=== PATIENT | male | born 1995 | race Caucasian/White ===

== ENCOUNTER 2024-12-02 11:07 | Outpatient (CLI) | payer BC, SELFPAY ==
--- NOTE | 2024-12-02 11:17 | XRR_ITS ---
PROCEDURE INFORMATION: Exam: XR Left Shoulder Exam date and time: 12/02/2024 11:22 AM Age: 29 years old Clinical indication: Injury or trauma; Fall; Blunt trauma (contusions or hematomas); Injury date: 12/01/24; Injury details: Fell on left shoulder yesterday, pain in left shoulder and limited rom since; Additional info: Shoulder trauma TECHNIQUE: Imaging protocol: Radiologic exam of the left shoulder. Views: 2 or more views. COMPARISON: [place] [id number] 12/02/2024 11:22 AM FINDINGS: Bones/joints: Normal. Soft tissues: Normal. XR/XR shoulder LT min 2V* [id number] IMPRESSION: No acute findings.
--- NOTE | 2024-12-02 11:17 | XRR_ITS ---
PROCEDURE INFORMATION: Exam: XR Left Scapula Exam date and time: 12/02/2024 11:22 AM Age: 29 years old Clinical indication: Injury or trauma; Fall; Blunt trauma (contusions or hematomas); Right; Injury date: 12/01/24; Injury details: Fell on left shoulder yesterday, pain in left shoulder and limited rom since; Additional info: Trauma to shoulder blade, internal /external/ and scapular x view TECHNIQUE: Imaging protocol: Radiologic exam of the left scapula. Complete exam. COMPARISON: CR XR shoulder LT min 2V* [id number] 12/02/2024 11:22 AM FINDINGS: Bones/joints: Normal. Soft tissues: Normal. XR/[place] [id number] IMPRESSION: No acute findings.
== END 2024-12-02 11:08 | disposition home or self-care (01) ==
PROVIDERS: PCP Nurse Practitioner Family; Visit Provider Emergency Medicine
DX: G89.11 Acute pain due to trauma (principal); M25.512 Pain in left shoulder
CPT/HCPCS: 73010; 73030

== ENCOUNTER 2025-07-06 20:11 | Emergency (ER) | payer SELFPAY ==
[2025-07-06 20:14] VITALS: BP 118/76; PULSE 70; RESP 16; TEMP 36.8; O2SAT 100; BMI 20.5
--- NOTE | 2025-07-06 20:30 | ECG_ITS ---
[facility] Date: 2025-07-06 Pat Name: Lefty Nesbitt Department: Room: Gender: Male Bell [employer]er: : 1995 Requested By: Maureen Doss Order Number: [id number] Redd MD: Jovana Quintanilla M.D. Measurements Intervals [place] Rate: 66 P: 81 CO: 154 QRS: 103 QRSD: 102 T: 35 QT: 373 QTc: 394 Interpretive Statements SINUS RHYTHM RIGHT AXIS DEVIATION [QRS AXIS > 100] NONSPECIFIC T-WAVE ABNORMALITY No previous ECG available for comparison Electronically Signed On 07-07-2025 18:51:18 TRANSCRIBER by Jovana Quintanilla M.D. [email or web address]
--- NOTE | 2025-07-06 20:37 | W.ED.GENADLT ---
HPI - General Adult General: Chief complaint: General Medical Stated complaint: dizzy, no sleep, n/v Time Seen by Provider: 07/06/25 20:24 History of Present Illness: Patient is a 29-year-old male that presents to the ED with dizziness x 24 hours, nausea, vomiting. He states he cannot hold anything down. He is unsure what brought this on. No sick contact. It is worse with movement. No recent cold or illness. He thinks he has a low-grade fever, unmeasured. He just feels achy, malaise. He has tried self treatment at home of meclizine. Of note, he has had this in the past, he believes a couple years ago. Unsure what came of it. He has association of photophobia, phonophobia. No history of migraines. No dysuria. Vital signs stable. Associated symptoms: Reports nausea and vomiting; Deny chest pain, dyspnea, headache(s), rash or palpitations Related Data Home Medications ?Medication ?Instructions ?Recorded ?Confirmed escitalopram oxalate 10 mg tablet 10 mg PO DAILY 08/25/22 12/02/24 sildenafil 50 mg tablet 50 mg PO DAILY PRN 08/25/22 12/02/24 Previous Rx's ?Medication ?Instructions ?Recorded meclizine 25 mg tablet 50 mg (2 x 25 mg) PO Q8H PRN 08/25/22 motion sickness #14 tabs ondansetron HCl 4 mg tablet 4 mg PO Q8H PRN nausea and 08/25/22 vomiting #7 tabs ondansetron 4 mg disintegrating 4 mg PO Q8H PRN nausea and 07/06/25 tablet vomiting 4 days #14 tabs Allergies Allergy/AdvReac Type Severity Reaction Status Date / Time No Known Allergies Allergy Verified 07/06/25 20:25 Review of Systems General: Reports: 10 or more systems reviewed and unremarkable except in HPI and below Const: Denies: fever(s) or chills Eyes: Reports: change in vision and photophobia; Denies: blurry vision, blind spots, eye discomfort, eye discharge, eye redness, increased production of tears or seeing flashes ENMT: Denies: throat pain, nasal discharge or nasal congestion Card: Denies: chest pain or palpitations Resp: Denies: dyspnea or non-productive cough GI: Reports: nausea and vomiting; Denies: abdominal pain or change in bowel habits : Denies: flank pain or difficulty urinating Musc: Denies: neck pain or back pain Skin/Breast: Denies: rash or pruritus Neuro: Denies: headache(s) or numbness in extremities Psych: Denies: anxiety or depression PFSH ED PFSH: Family History Father Healthy adult Mother Healthy adult Social History Smoking and tobacco/nicotine status: never used tobacco/nicotine Alcohol intake: never Substance/Drug Use: never Marital status: Number of children: 3 Current occupational status: employed Current occupation: [employer] Physical Exam Const: COMMON NORMALS: no acute distress, average body habitus, patient oriented x3, no limitations, healthy appearing, alert and well nourished HENMT: COMMON NORMALS: normocephalic, atraumatic, hearing grossly normal bilaterally, TM's normal bilaterally, Normal external nose present, moist oral mucous membranes and oropharynx normal HEAD & SCALP: normocephalic and atraumatic NOSE: Normal external nose present TYMPANIC MEMBRANE: TM's normal bilaterally Chest: COMMONS NORMALS: normal inspection of the chest and normal palpation of entire chest wall Resp: COMMON NORMALS: normal respiratory effort, No retractions and No use of accessory muscles Cardio: COMMON NORMALS: regular rate and regular rhythm RATE: regular rate RHYTHM: regular rhythm GI: COMMON NORMALS: Normal to inspection, nondistended, normoactive bowel sounds present, Soft to palpation, non-tender and No hepatosplenomegaly present PALPATION: Yes Soft to palpation and Yes No hepatosplenomegaly present : COMMON NORMALS: Yes no CVA tenderness BLADDER/KIDNEY EXAM: Yes no CVA tenderness Back/Pelvis: COMMON NORMALS: no CVA tenderness Extremity: COMMON NORMALS: normal to inspection, full ROM and capillary refill normal Neuro: COMMON NORMALS: patient oriented x3 SENSORIUM/ORIENTATION: Yes alert Psych: COMMON NORMALS: mental status grossly normal, Normal thought process present and cooperative THOUGHT PROCESS: Normal thought process present Course Reevaluation(s): Reevaluation #1: Patient is improved, no longer having ringing in his ears, no dizziness, and mild nausea, after IV fluids, and Zofran. Vital Signs: Vital signs: Vital Signs Temperature 98.2 F 07/06/25 20:14 Pulse Rate 70 07/06/25 20:14 Respiratory Rate 16 07/06/25 20:14 Blood Pressure 118/76 07/06/25 20:14 Pulse Oximetry 100 07/06/25 20:14 Oxygen Delivery Me thod Room Air 07/06/25 20:14 MDM - General Adult Medical Decision Making Patient is a 29-year-old male presents with just over 24 hours of dizziness, lightheadedness, nausea, vomiting, vertigo associated with movement. This is considered peripheral, labyrinthitis, versus BPV. Since it is reproducible, this is BPV at this time. Will give IV fluids, obtain routine labs, and Zofran x 1. Medical Records I reviewed the patient's medical records. Lab Data I reviewed the patient's lab results. 07/06/25 20:40 07/06/25 20:40 Laboratory Results WBC 6.92 10^3/uL (3.29-11.43) 07/06/25 20:40 RBC 5.15 10^6/uL (3.85-5.65) 07/06/25 20:40 Hgb 14.30 g/dL (11.27-16.99) 07/06/25 20:40 Hct 42.0 % (37-53) 07/06/25 20:40 MCV 81.6 fl (82-101) L 07/06/25 20:40 MCH 27.8 pg (27-33) 07/06/25 20:40 MCHC 34.0 g/dL (30-55) 07/06/25 20:40 RDW 12.2 % (12.1-15.1) 07/06/25 20:40 Plt Count 230 10^3/cmm (157-399) 07/06/25 20:40 MPV 8.7 fL (7.4-10.4) 07/06/25 20:40 Neut % (Auto) 73.0 % 07/06/25 20:40 Lymph % (Auto) 16.6 % 07/06/25 20:40 Rolette % (Auto) 9.4 % 07/06/25 20:40 Eos % (Auto) 0.3 % 07/06/25 20:40 Baso % (Auto) 0.4 % 07/06/25 20:40 Neut # (Auto) 5.05 10^3/uL (1.8-7.7) 07/06/25 20:40 Lymph # (Auto) 1.2 10^3/uL (0.8-4.8) 07/06/25 20:40 Rolette # (Auto) 0.7 10^3/uL (0.2-0.9) 07/06/25 20:40 Eos # (Auto) 0.0 10^3/uL (0.0-0.8) 07/06/25 20:40 Baso # (Auto) 0.0 10^3/uL (0.0-0.1) 07/06/25 20:40 Nucleated RBC % (auto) 0 % 07/06/25 20:40 Nucleated RBCs # 0.0 /100WBC 07/06/25 20:40 Sodium 133 mmol/L (136-145) L 07/06/25 20:40 Potassium 3.7 mmol/L (3.5-5.1) 07/06/25 20:40 Chloride 94 mmol/L (98-107) L 07/06/25 20:40 Carbon Dioxide 27 mmol/L (22-29) 07/06/25 20:40 Anion Gap 15.7 (5-19) 07/06/25 20:40 BUN 11 mg/dL (6-20) 07/06/25 20:40 Creatinine 0.9 mg/dL (0.7-1.2) 07/06/25 20:40 GFR Calculation 99.8 mL/min (90-130) 07/06/25 20:40 Glucose 133 mg/dL (65-115) H 07/06/25 20:40 Calculated Osmolality 277 mOsm/kg (285-295) L 07/06/25 20:40 Calcium 9.6 mg/dL (8.5-10.5) 07/06/25 20:40 Total Bilirubin 1.1 mg/dL (0.15-1.2) 07/06/25 20:40 AST 9 U/L (0-40) 07/06/25 20:40 ALT 8 U/L (0-41) 07/06/25 20:40 Alkaline Phosphatase 85 U/L (40-130) 07/06/25 20:40 Total Protein 8.4 g/dL (6.6-8.7) 07/06/25 20:40 Albumin 4.8 g/dL (3.5-5.2) 07/06/25 20:40 Globulin 3.6 g/dL (1.3-4.6) 07/06/25 20:40 Lipase 18 U/L (13-60) 07/06/25 20:40 No radiology studies performed this visit Discharge Plan Discharge Patient Disposition: Home Clinical Impression: Benign paroxysmal positional vertigo, bilateral Condition: Stable Prescriptions: New ondansetron 4 mg tablet,disintegrating 4 mg PO Q8H PRN (Reason: nausea and vomiting) 4 Days Qty: 14 0RF No Action escitalopram oxalate 10 mg tablet 10 mg PO DAILY sildenafil 50 mg tablet 50 mg PO DAILY PRN Rx Instructions: administer 30 minutes to 4 hours before activity meclizine 25 mg tablet 50 mg PO Q8H PRN (Reason: motion sickness) Qty: 14 0RF ondansetron HCl 4 mg tablet 4 mg PO Q8H PRN (Reason: nausea and vomiting) Qty: 7 0RF Discharge Orders: Discharge ED (Routine); Ordered 07/06/25 Ordered By: Maureen Doss Referrals: Jeannette Wasserman FNP [Primary Care Provider, Unknown] Discharge Diet: Clear Liquid and Full LIquid Patient Instructions: Full Liquid Diet, Clear Liquid Diet (ED), Benign Paroxysmal Positional Vertigo (ED), Patient Portal & Dominique Instructions Activity Restrictions/Additional Instructions: - Clear liquid diet only. After you tolerate clear liquids for 12 hours, you may advance to full liquid diet only. After you tolerate clear and full liquids for 24 hours together, total of 36 hours, you may try a bland diet. If you advance your diet, and have issues with nausea, and vomiting, go back to clear liquid diet. - At the pharmacy: [facility]. Use as directed -Return to ED with refractory nausea and vomiting, fever greater than 100.4 ?F Thank you for choosing [facility] for your healthcare needs today. You have been screened and evaluated and felt safe for discharge. Health conditions do change or evolve sometimes and as such it is important that you follow up with your Primary Doctor to be re checked, 3-5 days is a general good time frame for follow up. You are always welcome to return to the ED for re assessment if your symptoms are worsening or you have new concerns Stand Alone Forms: Work/School Release Print Language: Tajik Coding Level of Care Code ED Drafter [employer] for Robb Hernández
[2025-07-06] MEDS: ondansetron 2 mg/ML SDV 2 mL 4 MG IVP (20:44)
[2025-07-06 20:45] LABS: Hematocrit 42.0 % (37-53); Hemoglobin 14.30 g/dL (11.27-16.99); Mean Corpuscular HGB Conc 34.0 g/dL (30-55); Mean Corpuscular Hemoglobin 27.8 pg (27-33); Mean Corpuscular Volume 81.6 fl (82-101); Nucleated Red Blood Cells % 0 %; Platelet Count 230 10^3/cmm (157-399); Red Blood Count 5.15 10^6/uL (3.85-5.65); White Blood Count 6.92 10^3/uL (3.29-11.43)
[2025-07-06 21:07] LABS: Alanine Aminotransferase 8 U/L (0-41); Albumin Level 4.8 g/dL (3.5-5.2); Alkaline Phosphatase 85 U/L (40-130); Anion Gap 15.7 (5-19); Aspartate Amino Transferase 9 U/L (0-40); Blood Urea Nitrogen 11 mg/dL (6-20); Calcium 9.6 mg/dL (8.5-10.5); Carbon Dioxide 27 mmol/L (22-29); Chloride 94 mmol/L (98-107); Globulin 3.6 g/dL (1.3-4.6); Glucose 133 mg/dL (65-115); Lipase 18 U/L (13-60); Osmolality Calculated 277 mOsm/kg (285-295); Potassium 3.7 mmol/L (3.5-5.1); Sodium 133 mmol/L (136-145); Total Protein 8.4 g/dL (6.6-8.7)
[2025-07-06] MEDS: ondansetron hcl ODT 4 mg Tab PO (22:18)
== END 2025-07-06 22:26 | disposition home or self-care (01) ==
PROVIDERS: Emergency Provider Physician Assistant; PCP Nurse Practitioner Family
DX: H81.13 Benign paroxysmal vertigo, bilateral (principal)
CPT/HCPCS: 80053; 83690; 85025; 93005; 96361; 96374; 99284; J2405; J7120; Q0162